=== PATIENT | male | born 1945 | race Caucasian/White ===

== ENCOUNTER → 2022-03-21 | Outpatient (CLI) | payer MEDICARE ==
[~2022-03-21] MED LIST: ASPI-892; CIPR-225 PO; DOCU-143 PO; HYDR-707 PO; HYOS0.1216 PO; LISI1TAB44 PO; POLY119P PO; PRD10T PO; SIMV40TA2 PO; TMSL.4C PO
--- NOTE | 2022-03-21 17:35 | Diagnostic Imaging Report ---
INDICATION: Chronic hip pain. COMPARISON: 09/20/2015. FINDINGS: Two radiographic views of the right hip were obtained and show no evidence of acute fracture or dislocation. Osseous structures are intact. 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 This consists of severe joint space narrowing with sclerotic remodeling to the articular surfaces and osteophyte formations. Joint space is otherwise maintained. No unexpected radiopaque foreign bodies are seen. IMPRESSION: 1. No acute fracture or dislocation of the right hip. 2. Advanced osteoarthritic changes. Dictated by: Dictated on workstation # [id number]
--- NOTE | 2022-03-21 17:37 | Diagnostic Imaging Report ---
INDICATION: Back pain. COMPARISON: None FINDINGS: Frontal and lateral views of the lumbar spine were obtained. Evaluation of the static alignment shows slight grade 1 retrolisthesis at L2-L3 and slight grade 1 anterolisthesis at L3-L4. There is no evidence of jumped facets. Vertebral body heights are maintained. There is no acute fracture. Mild multilevel degenerative changes are noted. Included small bowel loops are nondistended. IMPRESSION: 1. No acute fracture or dislocation of the lumbar spine. 2. Mild multilevel degenerative changes. Dictated by: Dictated on workstation # [id number]
== END ==
LOC: RAD 13:59
PROVIDERS: ATTEND Family Medicine
DX: M47.816 Spondylosis without myelopathy or radiculopathy, lumbar region (principal); M16.11 Unilateral primary osteoarthritis, right hip
CPT/HCPCS: 72100; 73502

== ENCOUNTER 2023-02-09 16:31 | Emergency (ER) | payer MEDICARE ==
[~2023-02-09] VITALS: Ht 177.8 cm; Wt 79.4 kg
[2023-02-09 16:50] VITALS: BP 156/74
--- NOTE | 2023-02-09 16:56 | ED Fall/Injury ---
General Chief Complaint: Trauma-Non Activation Stated Complaint: FALL ON FACE Nursing Triage Note: PT AMB TO ED BY POV WITH C/O FALL. PT REPORTS HE TRIPPED OVER A HOSE, FELL AND HIT HIS FACE ON CONCRETE. PT REPORTS HE NOW HAS A DE PAZ. DENIES DIZZINESS. Source: patient, family () Exam Limitations: no limitations History of Present Illness Date Seen by Provider: Feb 09, 2023 Time Seen by Provider: 16:44 Initial Comments 77-year-old male presents to the emergency department today for head injury. He fell on the concrete at about noon. He states he simply tripped over his feet. He struck his face on the concrete. He did try to catch himself. He has had a headache since then which is his concern. He took a total of 4 Tylenol now and it has not subsided. No nausea or vomiting. No loss of consciousness. He is n ot on any blood thinning medications. No upper or lower extremity weakness numbness or tingling. No neck pain. Pain is right posterior occipital without radiation and constant. No changes in his vision. All other systems reviewed and negative except documented per HPI. Voice recognition software was used to help create this chart Allergies and Home Medications Allergies Coded Allergies: No Known Drug Allergies (Unverified , 09/01/16) Patient Home Medication List Home Medication List Reviewed: Yes Lisinopril/Hydrochlorothiazide (Lisinopril-Hctz 10-12.5 mg Tab) 1 Each Tablet, 1 EACH PO DAILY, (Reported) Entered as Reported by: MANI MOREJON on 09/01/16 1456 Simvastatin (Zocor) 40 Mg Tablet, 40 MG PO HS, (Reported) Entered as Reported by: SCARLET NGUYEN on 01/12/10 1444 Review of Systems Review of Systems Constitutional: see HPI Past Jrtfgww-Zelkqj-Zyopob Hx Immunizations Up To Date Tetanus Booster (TDap): Unknown Seasonal Allergies Seasonal Allergies: No Past Medical History Orthopedic, Prostatectomy High Cholesterol, Hypertension Reproductive Disorders: No Sexually Transmitted Disease: No HIV/AIDS: No Prostate Problems Arthritis Loss of Vision: Denies Hearing Impairment: Denies Adverse Reaction/Blood Tranf: No (N/A) Family Medical History Reviewed Nursing Family Hx Physical Exam Vital Signs Vital Signs - First Documented 02/09/23 16:50 Temp 36.6 Pulse 71 Resp 16 B/P (MAP) 156/74 (101) Pulse Ox 95 O2 Delivery Room Air Capillary Refill : Less Than 3 Seconds Height, Weight, BMI Height: 6'0.00" Weight: 170lbs. 0.0oz. [id number]; 25.00 BMI Method:Stated General Appearance: WD/WN, no apparent distress HEENT: PERRL/EOMI, normal ENT inspection, TMs normal, pharynx normal, other (No hemotympanum) Neck: non-tender, full range of motion, supple, normal inspection Cardiovascular: regular rate, rhythm, no murmur Respiratory: chest non-tender, lungs clear, normal breath sounds, no respiratory distress, no accessory muscle use Gastrointestinal: normal bowel sounds, non tender, soft, no organomegaly, no pulsatile mass Extremities: normal range of motion, non-tender, normal inspection, no pedal edema, no calf tenderness Neurologic/Psychiatric: billet assembler II-XII nml as tested, no motor/sensory deficits, alert, normal mood/affect, oriented x 3 Skin: other (Scattered abrasions across the bridge of his nose, his face. The worst of this is on the right side, infraorbital. There are some swelling in th is area. No evidence for entrapment) Progress/Results/Core Measures Results/Orders My Orders Orders - MERON LUND DO Ct Head Wo (02/09/23 16:53) Dipht,Pertuss(Acell),Tet Adult (Boostrix (02/09/23 17:00) Hydrocodone/Apap 5/325 Tablet (Lortab 5 (02/09/23 17:15) Vital Signs/I&O 02/09/23 16:50 Temp 36.6 Pulse 71 Resp 16 B/P (MAP) 156/74 (101) Pulse Ox 95 O2 Delivery Room Air Blood Pressure Mean: 101 Departure Communication (Admissions) Patient is hemodynamically stable, neurologically intact. There is no focal exam findings however he has a significant headache posterior head that was not relieved with Tylenol despite couple different doses. With that given his age would have been a CT scan shows no intracranial abnormality. Given p.o. hydrocodone and discharged with the same. No evidence for emergent medical condition at this time. No neck injury. No other injuries. I have independently reviewed the CT images Impression Primary Impression: Fall Qualified Codes: W19.XXXA - Unspecified fall, initial encounter Additional Impression: Headache Qualified Codes: R51.9 - Headache, unspecified Disposition: 01 HOME, SELF-CARE Condition: Stable Departure-Patient Inst. Referrals: MARIA VICTORIA ABDI DO (PCP/Family) Primary Care Physician Patient Instructions: Headache, Adult, Preventing Falls in Older Adults Add. Discharge Instructions: Take the pain medications as prescribed as needed. There is no indication for bleeding or any other abnormality in your brain I think your headache is simply from the following 1. Return to the emergency department for any severe concerns. Do not take any products containing Tylenol as the hydrocodone has descended already. You may take anti-inflammatory medicine such as Motrin or Aleve in addition to the hydrocodone. This may make you drowsy so do not drive while taking hydrocodone. This may also cause constipation so I recommend you take a stool softener. Return to the emergency department for any severe concerns or if your symptoms change in any way concerning to you. Follow-up with your primary doctor for any nonemergent needs. All discharge instructions reviewed with patient and/or family. Voiced understanding. Scripts Hydrocodone/Acetaminophen (Hydrocodone-Acetamin 5-325 mg) 5 Mg-325 Mg Tablet 1 TAB PO Q4H PRN for PAIN-MODERATE (5-7) for 3 Days, #12 TAB Prov: MERON LUND DO 02/09/23 MERON LUND DO Feb 09, 2023 16:56
[2023-02-09] MEDS ORDERED: TETANUS,DIPTH,PERTUSS P/F (BOOSTRIX) 0.5 ML VIAL IM ONE (17:00)
[2023-02-09] MEDS ORDERED: HYDROcodone/APAP 5 MG/325 MG (LORTAB) TAB PO ONE (17:15)
[2023-02-09] MEDS ORDERED: ACHD5005 PO (17:18)
--- NOTE | 2023-02-09 17:22 | Diagnostic Imaging Report ---
PROCEDURE: CT head without contrast. TECHNIQUE: Multiple contiguous axial images were obtained through the brain without the use of intravenous contrast. Auto Exposure Controls were utilized during the CT exam to meet ALARA standards for radiation dose reduction. INDICATION: Fall, pain. COMPARISON: None available. FINDINGS: No intracranial hemorrhage. No intracranial mass, mass effect, midline shift, herniation, hydrocephalus, or extra-axial fluid collection. No definite CT evidence of an acute ischemic infarction. The orbits are unremarkable. Mucosal thickening within the right sphenoid sinus. Otherwise, the paranasal sinuses are clear. Osseous excrescence is noted involving the right frontal calvarium, which is contiguous with the cortex and underlying medullary cavity. The extracalvarial soft tissues are unremarkable. Background vascular calcifications. IMPRESSION: No acute intracranial abnormality. 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 Minimal mucosal thickening and fluid within the right sphenoid sinus. Dictated by: Dictated on workstation # [id number]
== END 2023-02-09 17:30 | disposition home or self-care (01) ==
LOC: EDUNIT# 16:31 → ER 16:37
DX: S00.31XA Abrasion of nose, initial encounter (principal); S00.81XA Abrasion of other part of head, initial encounter; Z23 Encounter for immunization; W01.198A Fall on same level from slipping, tripping and stumbling with subsequent striking against other object, initial encounter
CPT/HCPCS: 70450; 90715